=== PATIENT | male | born 1940 | race Caucasian/White ===

== ENCOUNTER 2017-10-09 12:00 | Day surgery (SDC) | payer MEDICARE ==
--- NOTE | 2017-10-09 07:48 | History and Physical Report ---
DATE: 10/08/2017. 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 Due to the failure of all therapy, a spinal cord stimulator trial was conducted on 09/09/2017 with 75 to 85 percent pain control. Due to the failure of all therapy and the success of the stimulator trial, the patient presents today for implantation of a permanent system. PAST MEDICAL HISTORY: Vascular disease, degenerative arthritis. SOCIAL HISTORY: Social alcohol. FAMILY HISTORY: Coronary artery disease, cardiac disease. PAST SURGICAL HISTORY: Multiple lower extremity vascular surgeries with amputation. MEDICATIONS ON ADMISSION: To be provided. ALLERGIES: Penicillin and Ambien. PHYSICAL EXAMINATION: General: Height and weight are not known. Vital Signs: Not available. HEENT: Within normal limits. Lungs: Clear. Heart: Regular rate and rhythm. Abdomen: Nontender. Musculoskeletal: Examination of the musculoskeletal system shows a right lower extremity [id number]-[id number] amputation. There are no open wounds. Motor and sensory field evaluation is somewhat difficult. There appear to be sensory field abnormalities in the right upper leg. The left lower extremity shows mild changes with respect to motor functionality. Ambulation: Assistive device is utilized. Neurologic: Cranial nerves are intact. IMPRESSION: 1. PHANTOM LIMB SYNDROME, ICD-10 CODE G54.6. 2. LUMBAR RADICULOPATHY, ICD-10 CODE M54.16 and M54.17. PLAN: The patient is here for a permanent spinal cord stimulator after the successful trial and the failure of all other therapy. All of the potential risks, side effects, and complications have been carefully reviewed and discussed including spinal cord injury, nerve root injury, spinal headache, and failure of the therapy. Information was provided through the retail field supervisor which fully explains the procedure, its side effects, and its complications. He was placed in direct contact with the [employer] off premise service representative who has also reviewed and discussed the potential side effects and complications. We will consider this procedure outpatient; although an overnight stay will be evaluated. JOB NUMBER: [id number] cc: Rizwan Nova M.D. MTDD
[~2017-10-09 12:00] MED LIST: ACETAMINOPHEN 1,000 MG/100 ML BTL IV ONE; FAMOTIDINE 20MG TABLET PO ONE; MECLIZINE 25 MG TABLET PO ONE; METOCLOPRAMIDE 10 MG TABLET PO ONE; VANCOMYCIN HCL 1,000 MG in DEXTROSE 5 % IN WATER 250 ML IVPB ONE
[2017-10-09] MEDS ORDERED: BUPIVACAINE 0.5% W/EPI MPF 30 ML VIAL IVP ONE (12:01)
[2017-10-09] MEDS ORDERED: FLUMAZENIL 1MG/10ML VIAL IV ONE (12:01)
[2017-10-09] MEDS ORDERED: LIDOCAINE 2% MDV (20MG/ML) 20ML VIAL IV ONE (12:01)
[2017-10-09] MEDS ORDERED: MIDAZOLAM HCL 2MG/2ML VIAL IV ONE (12:01)
[2017-10-09] MEDS ORDERED: KETOROLAC 30 MG/ML VIAL IVP ONE (12:01)
[2017-10-09] MEDS ORDERED: FENTANYL PF 100MCG/2ML VIAL IV ONE (12:01)
[2017-10-09] MEDS ORDERED: PROPOFOL 10 MG/ML VIAL IV ONE (12:01)
[2017-10-09] MEDS ORDERED: NALOXONE 0.4 MG/1 ML VIAL IVP ONE (12:01)
[2017-10-09] MEDS ORDERED: LIDOCAINE 1% W/EPI 1:200,000 MPF 30ML SQ ONE (12:01)
[2017-10-09] MEDS ORDERED: CLINDAMYCIN (PEDIATRIC DOSING) 150 MG/ML VIAL IVPB ONE (12:01)
[2017-10-09] MEDS ORDERED: SENNOSIDES/DOCUSATE SODIUM UD CAPSULE PO PRN ×2 (15:40)
[2017-10-09] MEDS ORDERED: ACETAMINOPHEN 325 MG TAB PO PRN ×2 (15:40)
[2017-10-09] MEDS ORDERED: TEMAZEPAM 15 MG CAPSULE PO PRN ×2 (15:40)
[2017-10-09] MEDS ORDERED: DIPHENHYDRAMINE HCL 25 MG CAPSULE PO PRN ×2 (15:40)
[2017-10-09] MEDS ORDERED: DIPHENHYDRAMINE HCL IV 50 MG/ML VIAL IVP PRN ×2 (15:40)
[2017-10-09] MEDS ORDERED: HYDROMORPHONE HCL 2 MG/ML VIAL IM PRN ×2 (15:40)
[2017-10-09] MEDS ORDERED: METOCLOPRAMIDE HCL 10 MG/2 ML VIAL IVP PRN (15:40)
[2017-10-09] MEDS ORDERED: AL HYDROX/MAG HYDROX 30ML UD PO PRN (15:40)
[2017-10-09] MEDS ORDERED: OXYCODONE/APAP 10MG-325MG TABLET PO PRN ×2 (15:40)
[2017-10-09] MEDS ORDERED: METOCLOPRAMIDE 10 MG TABLET PO PRN (15:40)
[2017-10-09] MEDS ORDERED: HYDROCODONE/APAP 7.5/325MG TABLET PO PRN (15:40)
[2017-10-09] MEDS: 0.9 % SODIUM CHLORIDE 10ML SYR IVP SCH (21:16)
[2017-10-09] MEDS ORDERED: LISINOPRIL 5 MG TABLET PO SCH (22:00)
[2017-10-09] MEDS ORDERED: ATORVASTATIN 20 MG TABLET PO SCH (22:00)
[2017-10-09] MEDS ORDERED: METOPROLOL SUCC 50 MG TABLET PO SCH (22:00)
--- NOTE | 2017-10-09 23:16 | Operative Note - Fer[place] ---
DATE OF SURGERY: 10/09/17 PREOPERATIVE DIAGNOSES: 1. PHANTOM LIMB SYNDROME, ICD-10 CODE = G54.16. 2. LUMBAR RADICULOPATHY, ICD-10 CODE = M54.16 AND M54.17. SURGERY: 1. FLUOROSCOPIC-GUIDED EPIDURAL ACCESS RIGHT T11-12. PLACEMENT OF SPINAL CORD STIMULATOR LEAD 1, A [employer] INFINION 16 WITH 6 ELECTRODES POSITIONED RIGHT T7. 2. FLUOROSCOPIC-GUIDED EPIDURAL ACCESS RIGHT T12-L1. PLACEMENT OF SPINAL CORD STIMULATOR LEAD 2, A [employer] INFINION 16 WITH 6 ELECTRODES POSITIONED LEFT T7. 3. COMPLEX PROGRAMMING OF LEAD 1, OVER 20 MINUTES FOLLOWED BY COMPLEX PROGRAMMING OF LEAD 2, OVER 20 MINUTES. 4. INCISION, SUBCUTANEOUS DISSECTION, AND ANCHORING OF LEAD 1 AND LEAD 2 TO SUPRASPINOUS FASCIA USING A [employer] LOCKING ANCHOR. 5. INCISION, SUBCUTANEOUS DISSECTION, AND CREATION OF SUBCUTANEOUS POUCH AT RIGHT POSTERIOR GLUTEAL MARGIN FOR PLACEMENT OF GENERATOR IDENTIFIED A [employer] PROGRAMMABLE, RECHARGEABLE WAVERIDER GENERATOR. 6. TUNNELING BETWEEN POUCHES, PLACEMENT OF EXTERNAL PORTION OF LEAD 1 AND LEAD 2 INTO GENERATOR POUCH, EACH LEAD INTERFACED TO THE GENERATOR. 7. SECURING A GENERATOR POUCH WITH NONABSORBABLE SUTURE WITH PLACEMENT OF BOTH LEADS INTO POUCH, CLOSURE OF INCISIONS WITH VICRYL FOR FASCIA, RUNNING SUBCUTICULAR VICRYL FOR SKIN. DERMABOND CLOSURE APPROXIMATING THE EDGES OF BOTH WOUNDS. 8. COMPLEX RECOVERY ROOM PROGRAMMING INTERNAL GENERATOR HOME USE, TWO STIMULATORS, 20 MINUTES. SURGEON: MINERVA STERLING D.O. ANESTHESIA: LOCAL SEDATION. ANESTHESIA PROVIDER: LORRAINE SHORT CRNA. INDICATIONS: This patient presents with a history of a post amputation phantom limb syndrome to the right along with an intractable lumbar radiculitis. Due to the failure of all therapy, a spinal cord stimulator trial was conducted with 75 to 90% pain control. Due to the failure of all therapy and the success of the trial, he presents here today for implantation of a permanent system. SURGERY: Intravenous line, vital sign monitoring, IV sedation; anesthesia provider Lorraine ADAMS. Sterile prep, sterile technique with local. The epidural interspace from the right at 11-12 and 12-1 infiltrated. Then using two separate curved access Epimed needles with a [id number], the space was accessed. At 11-12, spinal cord stimulator lead 1, a [employer] Infinion 16 with 6 electrodes positioned right at T7. Epidural access then accomplished at 12-1 similar technique, spinal cord stimulator lead 2, a [employer] Infinion 16 with 6 electrodes, positioned left at T7. Complex programming of lead 1 over 20 minutes followed by complex programming of lead 2 over 20 minutes resulting in a complete pattern of stimulation into the back and across the legs, in particular into the right phantom limb pain pattern and focusing in the stump, which is exactly what the patient wanted. Patient indicating we hit all of the areas. He was given the option to implant, continue to program, or remove; he opted to implant. Questions were repeated with the same response. He was then re-sedated. The skin above and below both needles was infiltrated, incision made, and subcutaneous dissection was conducted into the supraspinous fascia. The needles were removed and each lead was anchored to the supraspinous fascia with a [employer] locking anchor and nonabsorbable suture. At the right posterior gluteal margin, a site picked by the patient for the generator, skin infiltrated, incision made, and subcutaneous dissection was conducted to form a pouch of suitable size and depth for the generator identified as a [employer] programmable, rechargeable WaveRider. Antibiotic irrigation and Bovie for hemostasis. A tunneling tool was then used to take the leads into the generator pouch and then each lead was interfaced with with the generator. The generator was placed into the pouch and secured to the posterior fascia with a nonabsorbable suture. The leads were placed into their own pouch and then both incisions were closed with Vicryl for fascia and a running subcuticular Vicryl for skin. A Dermabond closure was used to approximate the edges of each wound. He was then transported to the Recovery Room stable with no side effects from the procedure or the sedation. When fully awake and alert, complex programming of the internal generator performed over 20 minutes in the Recovery Room. He will be kept overnight for observation and then discharged in the morning. DISCHARGE INSTRUCTIONS: 1. The sites will remain clean and dry. He may shower but not sit in water. No hot tubs or bathing. 2. Standard medications resumed, including Levaquin, the antibiotic 500 mg once a day for 14 days. 3. The office will contact the patient at home in 2 to 3 days to set up an appointment for 5 to 7 days to evaluate the incisional sites. Until then, his activities should stay low. Limit bend, lift, push, pull. No aggressive activity levels until we have the chance to reevaluate the sites. All other instructions provided, numbers to contact if problems given. He was then prepared for discharge to the Floor. cc: Dr. Collins Winslow, [facility] Fiona Perez JOB NUMBER: [id number] MTDD
[2017-10-10] MEDS ORDERED: VANCOMYCIN HCL 1,000 MG in DEXTROSE 5 % IN WATER 250 ML IVPB ONE ×2 (01:00)
[2017-10-10] MEDS: HYDROCODONE/APAP 7.5/325MG TABLET PO PRN ×2 (08:14→10:17)
[2017-10-10] MEDS: 0.9 % SODIUM CHLORIDE 10ML SYR IVP SCH (11:17)
--- NOTE | 2017-10-10 20:12 | RADIOLOGY REPORT ---
EXAM: SPINE, 1 VIEW HISTORY: POST SPINAL CORD STIMULATOR IMPLANT. TECHNIQUE: Single AP view of the spine was obtained from the approximate T2 level down to the approximately L3 level. COMPARISON: None. FINDINGS: The patient is post-op sternotomy. There is probably some form of catheter extending from the right side towards the lumbar spine at the approximate L2 level. This then appears coiled upon itself overlying the L1 and L2 vertebrae with a couple small metallic densities probably associated with this. There are probably then a couple of very faint catheters extending superiorly from the upper lumbar into the thoracic spinal level, which extend up to the level of the superior endplate of the body of what is presumably T7. Correlation with the procedure itself suggested. Some relative elevation of the right hemidiaphragm. IMPRESSION: THE CATHETER/WIRES EXTEND UP TO THE LEVEL OF THE SUPERIOR ENDPLATE OF THE BODY OF T7. JOB NUMBER: [id number] MTDD
== END 2017-10-10 11:13 | disposition home or self-care (01) ==
LOC: SUR 12:00 → MEDSURG 16:01 → SUR 10-10 11:13
PROVIDERS: ATTEND Pain Medicine Interventional Pain Medicine
DX: G54.6 Phantom limb syndrome with pain (principal); M54.16 Radiculopathy, lumbar region; M54.17 Radiculopathy, lumbosacral region; I10 Essential (primary) hypertension; E78.00 Pure hypercholesterolemia, unspecified; I48.91 Unspecified atrial fibrillation; Z79.01 Long term (current) use of anticoagulants; Z89.611 Acquired absence of right leg above knee
CPT/HCPCS: 63685; 63650 ×2; 00300; 95972; 72020; J1885; J3370; J3010; C1820; C1883; J2310; J7060